=== PATIENT | male | born 1995 | race Hispanic/Latino ===

== ENCOUNTER 2020-10-11 12:35 | Emergency (ER) | payer OTHER ==
[2020-10-11 17:24] VITALS: BP 142/66
== END 2020-10-11 17:24 | DRG 563 ==
LOC: ED 12:35
PROC: 0HQGXZZ Repair Left Hand Skin, External Approach (ICD-10-PCS; principal; 2020-10-11)
DX: S62.627B Displaced fracture of middle phalanx of left little finger, initial encounter for open fracture (principal); S66.327A Laceration of extensor muscle, fascia and tendon of left little finger at wrist and hand level, initial encounter; S61.211A Laceration without foreign body of left index finger without damage to nail, initial encounter; S61.215A Laceration without foreign body of left ring finger without damage to nail, initial encounter; W31.2XXA Contact with powered woodworking and forming machines, initial encounter; Y93.89 Activity, other specified; Y92.009 Unspecified place in unspecified non-institutional (private) residence as the place of occurrence of the external cause